=== PATIENT | male | born 1965 | race Caucasian/White ===

== ENCOUNTER 2024-02-20 08:13 | Inpatient (IN) | payer OTHER, SELFPAY ==
[2024-02-20] VITALS (16 sets, daily range): BP systolic 94–152; BP diastolic 61–91; BMI 32.0; BMI 32.1
[2024-02-20 06:37] LABS: Hematocrit 41.6 % (39.0-52.0); Hemoglobin 14.7 g/dL (13.0-18.0); Mean Corp Hgb Conc. 35.3 g/dL (33.0-37.0); Mean Corpuscular Hgb 29.9 pg (27.0-31.0); Mean Corpuscular Volume 84.7 fL (80.0-94.0); Platelet Count 188 10^3/uL (130-400); Red Blood Cell Count 4.91 10^6/uL (4.70-6.10); Red Cell Dist. Width 12.8 % (11.5-14.5); White Blood Cell Count 8.8 10^3/uL (4.8-10.8)
--- NOTE | 2024-02-20 06:42 | ED.GENMED ---
History of Present Illness
General
Chief Complaint: Chest Pain
Source: patient and significant other
Exam Limitations: none
Time Seen by Provider: 02/20/24 06:18
Nursing documentation reviewed up to this point in time: agreed with
History of Present Illness
History of Present Illness:
Patient without any significant past medical history, presents to ED secondary to sudden onset of chest pain shortly after having sexual intercourse with his girlfriend, an approximately 1 hour prior to arrival. Chest pain described as dull, achy,
with radiation down both arms, associated with mild nausea sensation. Denies shortness of breath. Denies dizziness. Denies any alleviating or exacerbating factors. Denies previous history of chest pain. There is family history of heart disease,
i.e. father with DE. Denies recent illness. Denies recent travel or surgery. Denies back pain. Denies leg pain or swelling. Patient does not take any prescribed medications.
Past History
Past History
ED Past Medical History: None
ED Past Surgical History: Orthopedic
Social History
Tobacco: Non-smoker
Alcohol: None
Drug: None
Review of Systems
Review of Systems
Allergies reviewed?: Yes
All Other Systems: ROS reviewed and negative except as documented in HPI and ROS
Constitutional: Reports no symptoms
EENT: Reports no symptoms
Respiratory: Reports no symptoms
Cardiac: Reports chest pain
ABD/GI: Reports nausea
Musculoskeletal: Reports no symptoms
Skin: Reports no symptoms
Neurological: Reports no symptoms
Phy Exam
Physical Exam
Physical Exam:
Physical Exam
General: mild distress, not acutely ill. afebrile
Head: nc/at. eomi
Neck: supple. no meningeal signs.
Heart: s1/s2 regular rate and rhythm, no murmur. equal radial pulses.
Lungs: no acute respiratory distress. clear bilaterally
Abdomen: normal bowel sounds. not tender.
Neuro: alert and oriented. no focal neurological deficits
Skin: no rash
Psychiatric: well kept. interactive and cooperative
Extremities: no edema. no calf tenderness.
Scores
Heart Score for Chest Pain Patients
STEMI patient?: Yes
History: Highly Suspicious
ECG: Significant ST-Depression
Age: >45 - <65 years
Risk Factors: 1 or 2 Risk Factors
Troponin: </= Normal Limit
Heart Score for Chest Pain Patients: 6
Heart Score Risk: 20.3% MACE over next 6 weeks
Course
Orders/Labs/Results
Orders:
Orders
02/20/24 06:09
EKG [Electrocardiogram (*1)] Urgent
Reason for Study: Chest Pain
02/20/24 06:10
EKG- Treatment ONCE
02/20/24 06:18
Ondansetron Injectable [Zofran] 4 mg .ROUTE .STK-MED ONE
CR Chest Portable - 1 View Urgent
Comment:
Reason For Exam: chest pain
Reason Study Needs to be Portable: Patient Unstable
02/20/24 06:22
Complete Blood Count/No Diff Urgent
Comprehensive Metabolic Panel Urgent
Magnesium Urgent
Troponin I Urgent
02/20/24 06:24
Verapamil Injectable [Isoptin/Verapamil Injection] 5 mg .ROUTE .STK-MED ONE
02/20/24 06:25
Fentanyl Citrate/Pf [Sublimaze] 100 mcg .ROUTE .STK-MED ONE
Heparin 10,000 units .ROUTE .STK-MED ONE
Heparin 1000 Units/500 ml [Heparin] 1,000 units in 500 ml .ROUTE .STK-MED
Heparin Sodium,Porcine/Ns/Pf [Heparin 2000 Units/1000 ml] 2,000 unit in 1,000 ml .ROUTE .STK-MED
Lidocaine HCl/Pf [Xylocaine-Mpf 1% Vial] 50 mg .ROUTE .STK-MED ONE
Midazolam HCl [Versed] 2 mg .ROUTE .STK-MED ONE
Nitroglycerin [Tridil] 1,500 mcg .ROUTE .STK-MED ONE
02/20/24 06:35
NORepinephrine 4 MG/250 ML [Levophed] 4 mg in 250 ml .ROUTE .STK-MED
02/20/24 06:43
Aspirin Chewable [Low Strength Aspirin] 324 mg .ROUTE .STK-MED ONE
Nitroglycerin Sublingual [Nitrostat (Sublingual)] 0.4 mg .ROUTE .STK-MED ONE
Ticagrelor [Brilinta] 180 mg .ROUTE .STK-MED ONE
02/20/24 06:44
Heparin 5,000 units .ROUTE .STK-MED ONE
02/20/24 06:52
Heparin 1000 Units/500 ml [Heparin] 1,000 units in 500 ml .ROUTE .STK-MED
02/20/24 08:04
Admit Patient As Directed
Co-Sign Provider:
Level of Care: Inpatient admission
Assign to:: IVU
Physician / Group: jennie/Andrea
Diagnosis: STEMI
Reason for Hospitalization: STEMI
Expected length of stay greater than two midnights?: Yes
ELOS- Estimated Length of Stay in days: 3
I certify the patient meets the requirements for IP care: Yes
Electrocardiogram (*1) Urgent
Reason for Study: Other
Other Reason for Exam: s/p intervention
Comment: cbc
Code Status As Directed
Resuscitation Status: Full Code
CARDIAC REHAB CONSULT Routine
Co-Sign Provider:
Type of Cardiac Rehab Referral: Outpatient
Diagnosis: STEMI
Date of Diagnosis/Surgery: 02/20/24
Referring Provider: Other Provider
Other Referring Provider: Dr. Mendez
Acetaminophen [Tylenol] 650 mg PO Q4HPRN PRN
Activity As Directed
Activity Level: Out of Bed- Chair
Comment: bed/chair rest for 2 hours then out of bed ad jeff
Airport Duty Manager Procedure As Directed
Cardiac Cath Procedure: percutaneous coronary intervention
Intake/ Output As Directed
Frequency: Per unit guidelines
Notify MD As Directed
Notify physician if: immediately for chest pain or bleeding from access site(s)
Radial Artery Hemostasis Method As Directed
Instructions:: 3 mL out at 2 hour posts placement of band
3 mL out at 2 1/2 hours post placement of band
3 mL out at 3 hours post placement of band
Off at 3 1/2 hours post placement of band
If any oozing or hemotoma occurs:: re-inflate band and call provider
Site Checks As Directed
Check access site for bleeding/hematoma: Yes
Comment: on arrival, Q15min x4, Q30min x2, Q1 hr x2, Q2 hr x2, Q4 hr or per
protocol
Vascular Checks As Directed
Location: distal to access site - pulse check
Frequency: Other
Comment: on arrival, Q15min x4, Q30min x2, Q1 hr x2, Q2 hr x2, Q4 hr or per protocol
Vital Signs As Directed
Frequency: Other
Additional Instructions:: on arrival, Q15min x4, Q30min x2, Q1 hr x2, Q2 hr x2, then Q4 hr or per unit
protocol
02/20/24 08:06
PRN Pain Medication Management As Directed
May give lesser potent ordered pain med per pt: Yes
preference::
Protocol:: Medication orders for pain may be administered in a
manner that supports deferring to patient preference
when the pt is:
- Requesting an ordered lesser potent pain medication.
Least to most potent pain medications are defined
as: acetaminophen < NSAID < tramadol < opioids
(morphine, oxycodone, hydromorphone).
- Requesting a lesser dose of the same medication IF
ORDERED.
- Requesting a less intrusive route of administration
if both routes are prescribed by the provider (PO <
IV).
DX Deep Vein Thrombosis Video Routine
02/20/24 08:09
Case Management Consult ONCE
Case Management Consult: Discharge Planning
Comment: cost brilinta
02/20/24 08:15
0.9% Sodium Chloride 1000 ml [Nss] 1,000 ml IV PER PROTOCOL
Infusion rate in mL/kg/hr:: 1.5
Infusion rate in mL/hr:: 161
Duration of infusion (hours):: 5
02/20/24 Lunch
Cholesterol Lowering
At Your Request: Full Participation
Cholesterol Lowering: Sodium, 2 Gram
02/20/24 12:28
Troponin I Q8H
02/20/24 18:00
Atorvastatin [Lipitor] 80 mg PO QPM
Enoxaparin Sodium [Lovenox] 40 mg SC QPM
02/20/24 20:00
Troponin I Q8H
Ticagrelor [Brilinta] 90 mg PO BID
02/21/24 04:00
Troponin I Q8H
02/21/24 06:00
Echo 2D MMode Color/Doppler IN AM
Reason for Study: STEMI
Comment: cbc
Electrocardiogram (*1) IN AM
Reason for Study: Other
Other Reason for Exam: s/p intervention
Comment: cbc
Basic Metabolic Panel IN AM
Cardiovascular Evaluation IN AM
Complete Blood Count/No Diff IN AM
Glycohemoglobin (HgbA1c) Routine
Lipoprotein a (Lp a) [S] IN AM
02/21/24 08:00
Aspirin Chewable [Low Strength Aspirin] 81 mg PO DAILY
Losartan [Cozaar] 25 mg PO DAILY
02/22/24 06:00
Basic Metabolic Panel IN AM
Complete Blood Count/No Diff IN AM
02/23/24 06:00
Basic Metabolic Panel IN AM
Complete Blood Count/No Diff IN AM
Abnormal Lab Results
02/20/24 02/20/24 02/20/24
06:22 07:02 07:09
MPV 11.0 H fL
(7.4-10.4)
BUN 28 H mg/dl
(9-20)
Glucose 135 H mg/dl
(70-99)
POC ACT Low Range 165 H Seconds 265 H Seconds
(116-155) (116-155)
02/20/24
07:25
MPV
BUN
Glucose
POC ACT Low Range 313 H Seconds
(116-155)
02/20/24 06:22
02/20/24 06:22
Vital Signs
Initial and Last Documented VS:
Initial Vital Signs
BP
143/86
02/20/24 06:17
Last Documented Vital Signs
Temp Pulse Resp BP Pulse Ox
98.3 F 56 18 140/79 98
02/20/24 11:13 02/20/24 13:15 02/20/24 11:13 02/20/24 11:00 02/20/24 11:13
MDM/Problems Addressed
MDM/Problems Addressed:
STEMI alert activated, immediately upon reviewing of initial EKG. Patient given medications, per STEMI protocol, i.e. aspirin 2023 chewable, heparin protocol. Discussed with on-call Airport Duty Manager attending, Dr. Mendez, and decision made to also
administer Brilinta 180 mg at this time.
Patient provided with nitroglycerin sublingual 0.4 mg, with mild improvement of chest pain. Unfortunately, patient noted to become bradycardic and hypotensive. Shortly afterwards, patient's girlfriend shared that patient did in fact 1 tablet of
Viagra 7 hours ago. As such, patient given half amp of atropine and started on Levophed infusion, for blood pressure and heart rate support, with improvement.
Patient evaluated bedside by Dr. Mendez. Will proceed to Airport Duty Manager at this time.
Critical care statement: A total of 30 minutes of critical care time was provided for this patient. This includes management of unstable vital signs, evaluation of the patient at bedside, reviewing the patient's pertinent medical records, discussion
with consultants, review of old EKGs and review of pertinent medical records. This time with separate from time utilized to perform the aforementioned documented procedures
*EKG
Interpreted by ED Provider?: Yes
EKG Intrepretation Date: 02/20/24
Heart Rate: 51
Rate: bradycardiac
Rhythm: sinus
[place]: normal axis
Interval: normal interval
Ischemia: ST elevation
*Critical Care Note
Total Time (30-74mins, 75-104mins- exclusive of procedures): 30 min
ED Attending Note
-
Portions of this chart may have been created with voice recognition software.� Occasional wrong word or��sound alike� substitutions may have occurred due to the inherent limitations of voice recognition software.
Discharge Plan
Departure
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
Date of Disposition: 02/20/24
Time of Disposition: 06:43
Admit to: curb and gutter laborer
Presentation/result/management discussed w/ accepting MD/DO:
Discharge Problem:
ST elevation (STEMI) myocardial infarction
Interventions
Interventions:
*Risk Screen - Suicide Last Done: 02/20/24 08:17
*Nursing Disposition Last Done: 02/20/24 06:45
ED- Cardiac Assessment Last Done: 02/20/24 06:31
Discharge Date and Time
Discharge Date/Time: 02/20/24 07:26
[2024-02-20 06:56] LABS: ALT (SGPT) 26 U/L (0-50); AST (SGOT) 26 U/L (17-59); Albumin 4.2 g/dl (3.5-5.0); Alkaline Phosphatase 58 U/L (38-126); Blood Urea Nitrogen 28 mg/dl (9-20); Calcium 9.6 mg/dl (8.4-10.2); Carbon Dioxide 28 mmol/L (22-30); Chloride 103 mmol/L (98-107); Estimated Creatinine Clearance 91 ml/min; Glucose 135 mg/dl (70-99); Magnesium 2.1 mg/dl (1.6-2.3); Potassium 4.2 mmol/L (3.5-5.1); Sodium 140 mmol/L (135-145); Total Bilirubin 0.4 mg/dl (0.2-1.3); Total Protein 6.4 g/dl (6.3-8.2); eGFR > 60.00
[2024-02-20 07:00] LABS: Troponin I < 0.012 ng/ml
[2024-02-20 07:08] LABS: ACT-LR - POC 165 Seconds (116-155)
[2024-02-20 07:17] LABS: ACT-LR - POC 265 Seconds (116-155)
[2024-02-20 07:32] LABS: ACT-LR - POC 313 Seconds (116-155)
--- NOTE | 2024-02-20 07:40 | HPS.HSE ---
Family Physician
-
Family Physician: Camacho Banerjee MD (not seen in over 5 years)
Chief Complaint
-
Chest pain/STEMI
History of Present Illness
58 yo WM h/o HTN, HLD has not seen PCP in over 5 yrs and not on any medications who developed acute SSCP with associated nausea while having intercourse with his girlfriend this am. 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 EKG with inferior ST elevations.
He was given ASA, Heparin, Brilinta and Nitro. He had not disclosed the Viagra which resulted in hypotension and bradycardia after nitro, he received atropine and Levophed and was brought urgently to the collaborative teacher.
Medical History
Past Medical History
Past Medical History: Reports HTN, Hypercholesterolemia and Other (prostatitis 2020)
Past Surgical History: Reports Orthopedic (Back surgery 96) and Other (Skin cancer excision)
Social History
Tobacco: Non-smoker
Alcohol: None
Living: With Family
Family History
Family History: Early CAD (father [place] @54 RCA) and Cancer
Allergies / Home Medications
Allergies reflects when Allergies were last updated in [employer].
Home Medications with original date entered in [employer]
Allergy/Medication List:
Allergies
Allergy/AdvReac Type Severity Reaction Status Date / Time
Sulfa (Sulfonamide Allergy Unknown Verified 02/20/24 06:32
Antibiotics)
�Medication �Instructions �Recorded �Confirmed �Type
sildenafil 50 mg tablet 50 mg PO DAILY PRN erectile 02/20/24 02/20/24 History
dysfunction
Review of Systems
-
Cardiac: Reports Other (back pain 06/17)
Physical Exam
Vital Signs
Vital Signs
Pulse Resp BP Pulse Ox
76 13 126/79 95
02/20/24 06:45 02/20/24 06:45 02/20/24 06:40 02/20/24 06:45
Physical Exam
General: Pain (deferred as drapped and undergoing emergent procedure)
Laboratory Results
-
02/20/24 06:22
02/20/24 06:22
Laboratory Results
Total Bilirubin 0.4 mg/dl (0.2-1.3) 02/20/24 06:22
AST 26 U/L (17-59) 02/20/24 06:22
ALT 26 U/L (0-50) 02/20/24 06:22
Alkaline Phosphatase 58 U/L (38-126) 02/20/24 06:22
Troponin I < 0.012 ng/ml 02/20/24 06:22
Data Reviewed
-
Medical Tests (Nuc Med, Echo, EKG etc): Report Reviewed by me
Impression/Plan
-
PCP: Micha Ac MD
IMPRESSION/PLAN:
# Acute inferior STEMI - This diagnosis is a threat to life, post PCI RPL x 2 overlapping HENRY 02/19
serial troponin to peak, Echo in am
DAPT ASA/Brilinta (CM to eval cost)
Hold BB for now with bradycardia, new start to low dose ARB, trend BP
Check CVE and lipoprotein A, initiate high intensity statin
Cardiac rehab c/s
f/u CBC 2-4 weeks at d/c
continue to monitor on tele closely
#HTN - initiate ARB trend BP's
#HLD - has not seen PCP in over 5 yrs, will check CVE and initiate high intensity statin therapy
#Family hx premature CAD
#Prostatitis
#Skin cancer
--- NOTE | 2024-02-20 08:15 | PTCARENOTE ---
pt received from greenhouse laborer- pt drowsy, arouses easily to voice, AAOx3. SR on telemtry heart rate in 70s. pulses palpable. right radial TR band intact. pt on room air. sat 98%. lung sounds clear. active bowel sounds. given urinal, has not voided. pt
updated on plan of care. girlfriend brought to bedside.
--- NOTE | 2024-02-20 09:04 | ITS.CL.PN ---
Non Acoustic Operator - Procedure Note
Procedure
Procedure Note:
CARDIAC CATHETERIZATION REPORT
Date of Procedure: 02/20/2024
Referring: Dr. Roosevelt Fragoso
Indication: inferior STEMI
PROCEDURE:
1. Left heart catheterization
2. Coronary angiography
3. PCI with HENRY for acute WA to right posterolateral branch
4. IVUS of RCA
ACCESS:
6 [place] right radial artery
CATHETERS:
1. 6 [place] JL4 diagnostic
2. 6 [place] JR4 guide
HEMODYNAMIC DATA
LV 150/12 (EDP 30) mmHg
AO 142/80 (mean 104) mmHg
CORONARY ANGIOGRAPHY
Dominance: right
LM: large vessel with mild disease. The LM gives off an early moderate caliber branch that functions as a septal cascade, and then bifurcates into a moderate caliber LAD and large LCx. There is mild disease in the LM. The septal cascade has mild
disease.
LAD: moderate caliber vessel giving rise to one small diagonal branch. There is a long segment of moderate disease in the LAD beyond the diagonal. The distal LAD tapers to a diminutive vessel at the apex.
LCx: large vessel giving rise to a very large high-rising OM1 and moderate caliber OM2. There is a focal 40% stenosis in the mid-LCx between OM1 and OM2 and otherwise mild disease.
RCA: large dominant vessel giving rise to a large RPDA which supplies the apex and a large RPL branch that is 100% occluded.
INTERVENTIONS - IVUS-guided PCI to the right posterolateral branch with overlapping 2.75x22 and 3.0x12 mm HENRY
The right coronary artery was engaged with a JR4 guide catheter and a Runthrough wire placed in the distal RPL branch. Initial lesion preparation was performed with a 2.0x12 mm balloon with synagogue of flow. The patient became briefly bradycardic
in sinus rhythm with reperfusion, but blood pressure remained stable. A 2.75x22 mm [place] HENRY was selected and deployed at nominal pressure with good angiographic result. IVUS was then performed demonstrating a 2.75 mm distal reference vessel
diameter with a 3.25 mm proximal reference diameter and undersizing of the proximal stent edge. The proximal stent edge had been placed in a zone with minimal disease as confirmed by IVUS, but there was a segment of heavy plaque burden just distal
to the RPL/PRDA bifurcation. This was covered with a second 3.0x8 mm [place] HENRY. The stent balloon was used to postdilate the overlap. The entire stent other than the distal edge was then post-dilated with a 3.25x12 mm NC balloon with
excellent final angiographic result. IVUS was repeated and showed appropriate stent sizing, expansion, and apposition without edge dissection. The wire and guide were then removed and a TR band placed. The patient was taken to cath recovery and the
family updated.
Closure Device: TR band
Radiation dose (mGy): 1434
DAP (cm2.Gy): 80.67
Fluoroscopy time (minutes): 14.9
CONCLUSIONS:
1. Elevated LV filling pressure and no aortic stenosis
2. Coronary artery disease in a right dominant system with 100% thrombotic occlusion of the RPL
3. Successful IVUS-guided PCI of the RPL with placement of overlapping 2.75x22 and 3.0x8 mm [place] HENRY post-dilated with a 3.25 mm NC balloon. Excellent result without complication.
RECOMMENDATIONS:
1. Expectant management after cardiac catheterization via right approach.
2. DAPT with ASA/Ticagrelor
3. High intensity statin for goal LDL<55, check Lp(a)
4. AICHA inhibitor
5. Beta heather tomorrow (had heart block and bradycardia with RV involvement)
6. TTE
7. Cardiac rehab
Mohsen Mendez MD, PhD
[2024-02-20] MEDS: NSS 1000 IV (09:27)
[2024-02-20] MEDS: TYLENOL 650 MG PO (10:47)
--- NOTE | 2024-02-20 11:36 | CM ---
Pricing on Brilinta through the patient's [facility] is $60 for a 30 day or $12 for a 90 day supply. Patient qualifies for the $5 copay card. I placed it in the patient's red discharge folder and reviewed it with the patient. It is in stock at the
patient's [facility]
--- NOTE | 2024-02-20 11:39 | CM ---
Chart reviewed. 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 Plan is for the patient to return home. CM to follow
[2024-02-20] MEDS: LIPITOR 80 MG PO (17:15)
[2024-02-20] MEDS: LOVENOX 40 MG SC (17:16)
[2024-02-20] MEDS: BRILINTA 90 MG PO (20:28)
[2024-02-21] VITALS (7 sets, daily range): BP systolic 137–147; BP diastolic 72–80; BMI 32.1
--- NOTE | 2024-02-21 00:17 | PTCARENOTE ---
Rec'd pt at change of shift. Pt on TELE monitor in NSR with VSS and AAO*3. Pt denied any pain or discomfort. Pt post R radial heart cath with radial band off and dressing CDI. Pt aware of activity restriction and agreed to report any bleeding
immediately. Pt resting in bed with call saunders in reach.
[2024-02-21 04:15] LABS: Blood Urea Nitrogen 18 mg/dl (9-20); Carbon Dioxide 24 mmol/L (22-30); Chloride 104 mmol/L (98-107); Estimated Creatinine Clearance 112 ml/min; Glucose 98 mg/dl (70-99); HDL Cholesterol 28 mg/dl; LDL Cholesterol, Calculated 117 mg/dl; Sodium 138 mmol/L (135-145); Total Cholesterol 185 mg/dl (50-199); Triglyceride 202 mg/dl (10-149); Very Low Density Lipoprotein 40 mg/dl (0-30); eGFR > 60.00
[2024-02-21 04:19] LABS: Hematocrit 37.7 % (39.0-52.0); Hemoglobin 13.1 g/dL (13.0-18.0); Mean Corp Hgb Conc. 34.7 g/dL (33.0-37.0); Mean Corpuscular Volume 86.5 fL (80.0-94.0); Mean Platelet Volume 10.8 fL (7.4-10.4); Platelet Count 206 10^3/uL (130-400); Red Blood Cell Count 4.36 10^6/uL (4.70-6.10)
--- NOTE | 2024-02-21 05:16 | DOWNTIME ---
There was a [employer] Client Tooth Grinder Downtime on 02/21/2024 from 0100 to 02/21/2024 at 0355. Downtime documentation of patient's care, including medication administrations, has been reconciled in the electronic record per guidelines. Refer to the
patient's paper chart under the miscellaneous tab to see printed paper medication records and downtime forms.
--- NOTE | 2024-02-21 08:38 | W.PN.CD ---
Today's Communication / Plan
-
uptitrate Valsartan as able
HR controlled
Impression / Plan
-
A: 58 yo male presented with chest pain and inferior STEMI now s/p HENRY x2 to RPL 02/19.
STEMI s/p HENRY x2 to RPL
- cont aspirin and ticag
- HRs are acceptable
- started valsartan
- cardiac rehab
- CBC in 2 weeks
HTN
- switched losartan to valsartan
HLD
- cont atorva 80
Subjective: No new complaints feeling well
Physical Exam
Vital Signs/Labs
Vital Signs
Temp Pulse Resp BP Pulse Ox
98.6 F 56 20 137/75 97
02/21/24 06:52 02/21/24 05:00 02/21/24 06:52 02/21/24 03:23 02/21/24 06:52
02/20/24 02/21/24 02/22/24
06:59 06:59 06:59
Actual Weight 235 lb 14.314 oz 236 lb 5.369 oz
02/21/24 03:20
02/21/24 03:20
Magnesium 2.1 mg/dl (1.6-2.3) 02/20/24 06:22
Triglycerides 202 mg/dl (10-149) H 02/21/24 03:20
LDL Cholesterol, Calc 117 mg/dl 02/21/24 03:20
VLDL Cholesterol, Calc 40 mg/dl (0-30) H 02/21/24 03:20
HDL Cholesterol 28 mg/dl 02/21/24 03:20
LAB Results
02/20/24 02/20/24 02/20/24
06:22 12:28 20:05
Troponin I < 0.012 2.310 H* D 2.910 H* D
02/21/24
03:20
Troponin I 1.970 H* D
Physical Exam
Constitutional: No acute distress and Comfortable
EENT: Anicteric
Cardiovascular: Rhythm & rate is regular
Respiratory: Respiratory effort normal and Lungs clear to auscul.
GI: Soft
Neuro/Psych: AO x 3
Other: Cath Site (c/d/i good pulse )
Data Reviewed
-
Date of Service: February 21, 2024
EKG: Tracing Personally Visualized and interpreted (sr)
Echo: Report Reviewed by me
Labs: Labs Reviewed by me
--- NOTE | 2024-02-21 08:54 | PTCARENOTE ---
Received patient this morning resting in bed, right wrist dressing dry and intact, offers no complaints. Sent for echo as ordered and now back in his room ordering breakfast.
[2024-02-21] MEDS: BRILINTA 90 MG PO ×2 (09:33→19:48)
[2024-02-21] MEDS: LOW STRENGTH ASPIRIN 81 MG PO (09:33)
[2024-02-21] MEDS: DIOVAN 80 MG PO (09:34)
[2024-02-21 09:43] LABS: Glycohemoglobin (HgbA1c) 5.7 % (4.0-5.6)
--- NOTE | 2024-02-21 11:33 | CM ---
Chart reviewed. Patient is independent of ADLS, lives with his daughter who is only there PT in a [address], 15 [address], 0 DME. Plan is for the patient to return home. CM to follow
[2024-02-21] MEDS: LOVENOX 40 MG SC (17:10)
[2024-02-21] MEDS: LIPITOR 80 MG PO (17:10)
--- NOTE | 2024-02-21 22:54 | PTCARENOTE ---
Pt. received at change of shift. Pt. seen and assessed in room. Pt. AOx3 with no complaints at this time. VS WNL. Daughter at bedside. Pt. ambulating in room with no issues. Plan of care explained to pt by RN. Pt. verbalizes understanding. Call saunders
within reach. Continuing to monitor at this time.
[2024-02-22 03:52] VITALS: BMI 32.0
[2024-02-22 04:00] VITALS: BP 137/79
[2024-02-22 04:15] LABS: Hemoglobin 14.2 g/dL (13.0-18.0); Mean Corp Hgb Conc. 35.5 g/dL (33.0-37.0); Mean Corpuscular Hgb 30.1 pg (27.0-31.0); Mean Corpuscular Volume 84.7 fL (80.0-94.0); Mean Platelet Volume 10.4 fL (7.4-10.4); Platelet Count 201 10^3/uL (130-400); Red Blood Cell Count 4.72 10^6/uL (4.70-6.10); Red Cell Dist. Width 12.9 % (11.5-14.5); White Blood Cell Count 8.9 10^3/uL (4.8-10.8)
[2024-02-22 04:38] LABS: Blood Urea Nitrogen 14 mg/dl (9-20); Calcium 8.8 mg/dl (8.4-10.2); Carbon Dioxide 23 mmol/L (22-30); Chloride 105 mmol/L (98-107); Estimated Creatinine Clearance 112 ml/min; Glucose 103 mg/dl (70-99); Potassium 4.1 mmol/L (3.5-5.1); Sodium 139 mmol/L (135-145); eGFR > 60.00
--- NOTE | 2024-02-22 06:59 | W.PN.CD ---
Today's Communication / Plan
-
Increase valsartan get d/c today
Impression / Plan
-
A: 58 yo male presented with chest pain and inferior STEMI now s/p HENRY x2 to RPL 02/19.
STEMI s/p HENRY x2 to RPL
- cont aspirin and ticag
- HRs are acceptable
- increase valsartan to 180 mg daily
- cardiac rehab
- CBC in 2 weeks
HTN
- increase valsartan
HLD
- cont atorva 80
Subjective: Continues to feel well without new CV complaints, excited to leave
Physical Exam
Vital Signs/Labs
Vital Signs
Temp Pulse Resp BP Pulse Ox
98.1 F 55 20 137/79 98
02/22/24 04:10 02/22/24 05:00 02/21/24 19:40 02/22/24 04:00 02/21/24 19:40
02/20/24 02/21/24 02/22/24
06:59 06:59 06:59
Actual Weight 235 lb 14.314 oz 236 lb 5.369 oz 235 lb 14.314 oz
02/22/24 04:06
02/22/24 04:06
Magnesium 2.1 mg/dl (1.6-2.3) 02/20/24 06:22
Triglycerides 202 mg/dl (10-149) H 02/21/24 03:20
LDL Cholesterol, Calc 117 mg/dl 02/21/24 03:20
VLDL Cholesterol, Calc 40 mg/dl (0-30) H 02/21/24 03:20
HDL Cholesterol 28 mg/dl 02/21/24 03:20
LAB Results
02/20/24 02/20/24 02/20/24
06:22 12:28 20:05
Troponin I < 0.012 2.310 H* D 2.910 H* D
02/21/24
03:20
Troponin I 1.970 H* D
Physical Exam
Constitutional: No acute distress and Comfortable
EENT: Anicteric
Cardiovascular: Rhythm & rate is regular and Pedal edema is absent
Respiratory: Respiratory effort normal and Lungs clear to auscul.
GI: Soft
Neuro/Psych: AO x 3
Data Reviewed
-
Date of Service: February 22, 2024
Medical Decision Making: Reviewed Test Results
EKG: Tracing Personally Visualized and interpreted (sr)
Echo: Report Reviewed by me
Labs: Labs Reviewed by me
[2024-02-22 07:02] VITALS: BP 120/64
[2024-02-22] MEDS: BRILINTA 90 MG PO (09:43)
[2024-02-22] MEDS: LOW STRENGTH ASPIRIN 81 MG PO (09:43)
[2024-02-22] MEDS: DIOVAN 160 MG PO (09:44)
[2024-02-22] MEDS: FLUSH (NSS) 2 FLUSH IV (09:45)
--- NOTE | 2024-02-22 10:21 | PTCARENOTE ---
Received patient this morning resting in bed, S.O. and daughter at the bedside. Patient denies any chest pain or sob. Anxious to go home.
[2024-02-22 10:53] VITALS: BP 137/81
--- NOTE | 2024-02-22 12:57 | PTCARENOTE ---
Patient cleared by cardiology for discharge. Reviewed discharge instructions with the patient and his daughter and they state their understanding. Aware of new prescriptions, complying with meds and follow up appointments scheduled. Patient
discharged home with his daughter.
--- NOTE | 2024-02-22 15:50 | W.DS.TRANS ---
DC Summary - School Director
-
Discharge Instructions:
Discharge Diagnosis/Procedures Angioplasty with stent to Right posterior
lateral artery x 2
Diet Low Cholesterol
Driving Restrictions No driving for 24 hours
Other Services Cardiac Rehab
Instructions:
Stand-Alone Forms: DC Instructions- Cath/EP Lab
Changes to Home Medications: Yes
Discharge Medications:
DC Medications w/original date entered in [facility]
sildenafil 50 mg tablet 50 mg PO DAILY PRN erectile dysfunction 02/20/24
aspirin 81 mg chewable tablet 81 mg PO DAILY #1 tab 02/22/24
atorvastatin 80 mg tablet 80 mg PO QPM #90 tabs 02/22/24
nitroglycerin 0.4 mg sublingual tablet 0.4 mg sublingual [id number] PRN chest pain #25 tabs 02/22/24
ticagrelor 90 mg tablet (Brilinta) 90 mg PO BID #60 tabs 02/22/24
valsartan 160 mg tablet 160 mg PO DAILY #30 tabs 02/22/24
Home Medication Changes
all meds new except sildenafil
Pending Results: Yes
Additional Pending Results:
lipoprotein a result
[2024-02-23 13:04] LABS: Lipoprotein a (Lp a) 11 mg/dL (<=29)
== END 2024-02-22 12:59 | disposition home or self-care (01) | DRG 322 ==
LOC: IVU 08:13
PROVIDERS: Nurse Practitioner Adult Health; ADMITTING PHYSICIAN Student in an Organized Health Care Education/Training Program; EMERGENCY PHYSICIAN Emergency Medicine
PROC: 027035Z Dilation of Coronary Artery, One Artery with Two Drug-eluting Intraluminal Devices, Percutaneous Approach (ICD-10-PCS; 2024-02-20)
PROC: B240ZZ3 Ultrasonography of Single Coronary Artery, Intravascular (ICD-10-PCS; 2024-02-20)
PROC: 4A023N7 Measurement of Cardiac Sampling and Pressure, Left Heart, Percutaneous Approach (ICD-10-PCS; 2024-02-20)
PROC: B2111ZZ Fluoroscopy of Multiple Coronary Arteries using Low Osmolar Contrast (ICD-10-PCS; 2024-02-20)
DX: I21.19 ST elevation (STEMI) myocardial infarction involving other coronary artery of inferior wall (principal); I10 Essential (primary) hypertension; I25.10 Atherosclerotic heart disease of native coronary artery without angina pectoris; I95.9 Hypotension, unspecified; E78.00 Pure hypercholesterolemia, unspecified; R00.1 Bradycardia, unspecified; Z79.02 Long term (current) use of antithrombotics/antiplatelets; Z79.82 Long term (current) use of aspirin; Z79.899 Other long term (current) drug therapy; Z85.828 Personal history of other malignant neoplasm of skin; Z82.49 Family history of ischemic heart disease and other diseases of the circulatory system
CPT/HCPCS: 71045; 80048; 80053; 80061; 83036; 83695; 83735; 84484; 85027; 85347; 92978; 93005; 93306; 93458; 99291; C1725; C1753; C1874; C1894; C9606; Q9967

== ENCOUNTER 2024-11-20 12:08 | Inpatient (IN) | payer OTHER, SELFPAY ==
[2024-11-18 12:07] VITALS: BP 158/97
[2024-11-18 12:35] LABS: Hematocrit 43.2 % (39.0-52.0); Hemoglobin 14.6 g/dL (13.0-18.0); Mean Corp Hgb Conc. 33.8 g/dL (33.0-37.0); Mean Corpuscular Volume 90.0 fL (80.0-94.0); Nucleated Red Blood Cells % 0 % (-); Platelet Count 220 10^3/uL (130-400); Red Cell Dist. Width 12.7 % (11.5-14.5)
[2024-11-18 12:43] LABS: INR 0.91; PT 12.6 Sec (11.4-14.6)
[2024-11-18 12:57] LABS: ALT (SGPT) 43 U/L (0-50); AST (SGOT) 29 U/L (17-59); Albumin 4.4 g/dl (3.5-5.0); Alkaline Phosphatase 74 U/L (38-126); Blood Urea Nitrogen 19 mg/dl (9-20); Calcium 9.0 mg/dl (8.4-10.2); Carbon Dioxide 27 mmol/L (22-30); Chloride 104 mmol/L (98-107); Glucose 132 mg/dl (70-99); Potassium 4.4 mmol/L (3.5-5.1); Sodium 137 mmol/L (135-145); Total Protein 6.7 g/dl (6.3-8.2); eGFR > 60.00
[2024-11-18 13:04] LABS: Troponin I < 0.012 ng/ml
--- NOTE | 2024-11-18 15:08 | ED.GENMED ---
History of Present Illness
General
Chief Complaint: Chest Pain
Time Seen by Provider: 11/18/24 14:57
History of Present Illness
History of Present Illness:
59-year-old male presents to the emergency department for evaluation of exertional chest pain x 1 week. He is status post STEMI in February 2020 for HENRY x 2 to the right posterolateral branch. He notes that pain seemed to begin shortly after losing
access to his Brilinta, states his insurance covers Brilinta and his pharmacy will not provide it to him, he has not taken this for at least 1 week. Also notes that he was without his valsartan for approximately 3 weeks but restarted this recently.
He has no chest pain at rest. Does feel somewhat comparable to his prior [place]. No associated fevers, shortness of breath, leg swelling. Denies any symptoms at this current time.
Past History
Past History
ED Past Medical History: None
ED Past Surgical History: Orthopedic
Social History
Tobacco: Non-smoker
Alcohol: None
Drug: None
Review of Systems
Review of Systems
Allergies reviewed?: Yes
All Other Systems: ROS reviewed and negative except as documented in HPI and ROS
Phy Exam
Physical Exam
Physical Exam:
GEN: Well appearing, NAD, WDWN
HEENT: Oral mucosa moist, no scleral icterus
Cardiac: Regular rate and rhythm, no murmur
Lung: No respiratory distress, no tachypnea, lungs CTAB
MSK: No gross deformity or injuries
Skin: Good color, no pallor or jaundice, no rashes
Neuro: AO x3, moves all extremities freely
Psych: Calm, cooperative
Scores
Heart Score for Chest Pain Patients
STEMI patient?: No
History: Moderately Suspicious
ECG: Normal
Age: >45 - <65 years
Risk Factors: >/= 3 Risk Factors or History of CAD
Troponin: </= Normal Limit
Heart Score for Chest Pain Patients: 4
Heart Score Risk: 20.3% MACE over next 6 weeks
Course
Orders/Labs/Results
Orders:
Orders
11/18/24 Breakfast
Cholesterol Lowering
At Your Request: Full Participation
Cholesterol Lowering: Sodium, 2 Gram
11/18/24 12:09
Electrocardiogram (*1) Urgent
Reason for Study: Chest Pain
Cardiac Monitoring- Treatment ONCE
EKG- Treatment ONCE
IV Insert/Care/Rem.- Treatment PRN
O2 Therapy [RESP] Urgent
Titrate/Wean O2 to maintain O2 sat greater than (%): 90
Special Instructions: Maintain sats >/=90%
Pulse Ox/spot Check [RESP] Urgent
Quantity: 1
Special Instructions: ON ROOM AIR
11/18/24 12:26
Complete Blood Count/With Diff Urgent
Comprehensive Metabolic Panel Urgent
Prothrombin Time Urgent
Troponin I Urgent
11/18/24 15:04
CR Chest - 2 Views Urgent
Comment:
Reason For Exam: chest pain
11/18/24 15:10
Case Management Consult ONCE
Case Management Consult: Other
Comment: Medication Assistance
11/18/24 17:06
Admit/Transfer Patient As Directed
Co-Sign Provider:
Level of Care: Observation services
Assign to:: Telemetry
Physician / Group: [facility]
Diagnosis: Chest pain
Reason for Telemetry: Chest Pain syndromes
Date to Stop Telemetry: 11/20/24
Time to Stop Telemetry: 11:00
11/18/24 17:07
PRN Pain Medication Management As Directed
May give lesser potent ordered pain med per pt: Yes
preference::
Protocol:: Medication orders for pain may be administered in a
manner that supports deferring to patient preference
when the pt is:
- Requesting an ordered lesser potent pain medication.
Least to most potent pain medications are defined
as: acetaminophen < NSAID < tramadol < opioids
(morphine, oxycodone, hydromorphone).
- Requesting a lesser dose of the same medication IF
ORDERED.
- Requesting a less intrusive route of administration
if both routes are prescribed by the provider (PO <
IV).
11/18/24 17:08
Code Status As Directed
Resuscitation Status: Full Code
11/18/24 17:16
CARDIOLOGY CONSULT Routine
Consulting Provider: Charles Kwon
Was physician already notified: Yes
11/18/24 17:28
Troponin I Q6H
11/18/24 18:00
EKG [Electrocardiogram (*1)] Routine
Reason for Study: CAD
11/18/24 18:27
Bisacodyl [Dulcolax] 10 mg RECTAL [id number] PRN
Docusate W/Senna [Senokot-S] 1 tablet PO BIDPRN PRN
Polyethylene Glycol Powder [Miralax] 17 grams PO DAILYPRN PRN
11/18/24 18:27
Activity As Directed
Activity Level: As Tolerated
Intake/ Output As Directed
Frequency: Per unit guidelines
Pneumatic Compression Sleeves As Directed
Type: Knee high
Vital Signs As Directed
Frequency: Per unit guidelines
Weight As Directed
Frequency: Daily
Pulse Ox/spot Check [RESP] Routine
Quantity: 1
DX Deep Vein Thrombosis Video Routine
11/18/24 20:00
Ticagrelor [Brilinta] 90 mg PO BID
11/18/24 22:00
Atorvastatin [Lipitor] 80 mg PO HS
11/19/24 00:00
Troponin I Q6H
11/19/24 06:00
Exercise Nuclear [Nuclear/stress Exercise (*7)] IN AM
Reason for Study: shoulder discomfort, hx CAD, poss anginal equivalent
Comment: Dr. Kwon
NPO
Allow oral meds: Yes
Allow clear liquids: No
Basic Metabolic Panel IN AM
Complete Blood Count/With Diff IN AM
Hgba1c [Glycohemoglobin (HgbA1c)] IN AM
Lipid Profile [Cardiovascular Evaluation] IN AM
NM Cardiac Stress IN AM
Comment: Dr. Kwon
Reason For Exam: possible anginal equivalent
11/19/24 08:00
Aspirin Low Dose EC [Aspir Low (Enteric Coated)] 81 mg PO DAILY
Valsartan [Diovan] 160 mg PO DAILY
11/20/24 06:00
Basic Metabolic Panel IN AM
Complete Blood Count/With Diff IN AM
11/20/24 11:00
DC Protocol for Telemetry ONCE
11/21/24 06:00
Basic Metabolic Panel IN AM
Complete Blood Count/With Diff IN AM
11/22/24 06:00
Basic Metabolic Panel IN AM
Complete Blood Count/With Diff IN AM
11/23/24 06:00
Basic Metabolic Panel IN AM
Complete Blood Count/With Diff IN AM
11/24/24 06:00
Basic Metabolic Panel IN AM
Complete Blood Count/With Diff IN AM
11/25/24 06:00
Basic Metabolic Panel IN AM
Complete Blood Count/With Diff IN AM
Abnormal Lab Results
11/18/24
12:26
Glucose 132 H mg/dl
(70-99)
11/18/24 12:26
11/18/24 12:26
Vital Signs
Initial and Last Documented VS:
Initial Vital Signs
Temp Pulse Resp BP Pulse Ox
97.9 F 71 20 158/97 97
11/18/24 12:07 11/18/24 12:07 11/18/24 12:07 11/18/24 12:07 11/18/24 12:07
Last Documented Vital Signs
Temp Pulse Resp BP Pulse Ox
98.3 F 66 20 139/68 96
11/18/24 19:47 11/18/24 19:47 11/18/24 19:47 11/18/24 19:47 11/18/24 19:47
MDM/Problems Addressed
MDM/Problems Addressed:
Although the patient's presentation does not sound overtly concerning for angina, his noncompliance with antiplatelet therapy coupled with chest pain that is described as somewhat similar to past angina is concerning, discussed the case with
cardiology who saw the patient at bedside and recommends admission for further ischemic workup as an outpatient
Comment
Comment:
EKG independently interpreted by me shows a normal sinus rhythm with first-degree AV block, rate of [address] changes concerning for ischemia
*Pulse Oximetry
SaO2: 97
Oxygen Mode of Delivery: Room air
Patient hypoxic: no
*Critical Care Note
Total Time (30-74mins, 75-104mins- exclusive of procedures): Not Applicable
Update Note
Update Note:
Case discussed with cardiology at the bedside, plan for admission to hospitalist service for nuclear stress test in the morning. Case management also evaluated the patient and will assist with cardiology help the patient obtain appropriate
antiplatelet therapy
ED Attending Note
-
Portions of this chart may have been created with voice recognition software.� Occasional wrong word or��sound alike� substitutions may have occurred due to the inherent limitations of voice recognition software.
Discharge Plan
Departure
Patient Disposition: Admit
Date of Disposition: 11/18/24
Time of Disposition: 16:13
Admit to: Telemetry
Admit to doctor: Clarke
Presentation/result/management discussed w/ accepting MD/DO: Hospitalist
Discharge Problem:
Chest pain
Interventions
Interventions:
*Risk Screen - Suicide Last Done: 11/18/24 12:07
*General Assessment Last Done: 11/18/24 12:07
*Neglect/Abuse Screening Last Done: 11/18/24 17:27
*ED- Fall Risk Assessment Last Done: 11/18/24 17:26
*ED COVID-19 Vaccine History Last Done: 11/18/24 17:26
*Nursing Disposition Last Done: 11/18/24 18:32
ED- Cardiac Assessment Last Done: 11/18/24 18:03
Discharge Date and Time
Discharge Date/Time: 11/18/24 18:32
--- NOTE | 2024-11-18 15:29 | CON.CAR ---
Addendum entered and electronically signed by Charles Kwon MD 11/18/24 17:03:
I saw and examined the patient.
The [employer] SUPERVISOR's note was reviewed and I agree with the note.
59-year-old male with a history of coronary disease, ST IL and RPL stenting 02/2024, hypercholesterolemia who presents with bilateral shoulder discomfort. Patient's had intermittent symptoms over the past week. Reports bilateral shoulder
discomfort sometimes with exertion but sometimes is positional if he lays on his left side symptoms occur and seem to get better but he also described episodes where he was doing exertion such as yard work, walking stairs or intercourse where he
would get shoulder discomfort. Unclear if some of the symptoms are precipitated by arm activity like pulling hoses. Although the shoulder discomfort reminds him of symptoms he had when he presented with his IL he does not have the chest discomfort
that he had when he presented with his IL. No shortness of breath. He has been compliant with aspirin but he ran out of Brilinta and also ran out of valsartan. ECG without acute ischemic changes first troponin negative.
.
Chest discomfort. Exact cause of symptoms unclear. Patient has known coronary artery disease with previous IL and RPL stenting 02/2024 with some symptoms reminding him of previous presentation however he does not have the chest discomfort that he
had with his initial presentation and at times he describes a positional component which is not consistent with angina. Based on the above I suggested the following
- Admit for observation
- Serial troponins
- If troponins remain negative then plan for ETT MIBI in a.m.
- Continue aspirin and resume Brilinta
Original Note:
Consultation
Consultation Request
Date/Time Consultation Requested: 11/18/247
Date/Time Consultation Performed: 11/18/248
Requesting Provider: Troy MACKEY
Performing Provider: Genet VÁZQUEZ for Dr. Kwon
Reason for Consultation: shoulder dicomfort, possible anginal equivalent
Medical History
-
Chief Complaint: shoulder discomgoty
History of Present Illness:
58 y/o male with hypertension, CAD with hx STEMI 02/2024 with RPL stenting, and dyslipidemia who is here for evaluation of b/l shoulder discomfort. 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 It feels reminiscent in some ways of his [place]. However, there is not chest discomfort like there was for his [place]. It lasts less than a minute typically and started about 1 week ago. Of note, he stopped Brilinta about
1 week ago due to a pharmacy insurance issue and stopped ARB 3 weeks ago because he ran out. He has picked that back up though. He has been taking ASA and statin. He is in no distress at the time of my assessment. He denies any SOB.
Past Medical History
Past Medical History: CAD, HTN and Hypercholesterolemia
Social History
Tobacco: Non-Smoker
Family History
Family History: Early CAD
Allergies / Home Medications
Allergy/AdvReac Type Severity Reaction Status Date / Time
Sulfa (Sulfonamide Allergy Unknown Verified 02/20/24 06:32
Antibiotics)
�Medication �Instructions �Recorded �Confirmed �Type
sildenafil 50 mg tablet 50 mg PO DAILY PRN erectile 02/20/24 02/20/24 History
dysfunction
aspirin 81 mg chewable tablet 81 mg PO DAILY #1 tab 02/22/24 Rx
atorvastatin 80 mg tablet 80 mg PO QPM #90 tabs 02/22/24 Rx
nitroglycerin 0.4 mg sublingual 0.4 mg sublingual [id number] PRN 02/22/24 Rx
tablet chest pain #25 tabs
ticagrelor 90 mg tablet (Brilinta) 90 mg PO BID #60 tabs 02/22/24 Rx
valsartan 160 mg tablet 160 mg PO DAILY #30 tabs 02/22/24 Rx
Review of Systems
-
History Source: Patient
All other systems: Negative unless noted
Musculoskeletal: Other (b/l shoulder pain)
Physical Exam
Vital Signs
Temp Pulse Resp BP Pulse Ox
97.9 F 71 20 158/97 97
11/18/24 12:07 11/18/24 12:07 11/18/24 12:07 11/18/24 12:07 11/18/24 15:10
Lab Results
11/18/24 12:26
11/18/24 12:26
Troponin I < 0.012 ng/ml 11/18/24 12:26
Physical Exam
General: Well Developed, Well Nourished and No Apparent Distress
HEENT: Normocephalic and Anicteric
Respiratory: Clear and Non Labored Respirations
Cardiac: Regular Rhythm
Musculoskeletal: No Edema
Skin: Warm and Dry
Neuro: AO x 3
Psych: Calm
Impression / Plan
-
b/l shoulder discomfort:
-as described. Some of it sounds musculoskeletal, but also some features sound like could be anginal equivalent.
-monitor trops, EKG. If trops remains normal, plan for stress test tomorrow (nuclear exercise).
-other w/u per IM
CAD with hx STEMI/stenting 02/2024:
-continue ASA, resume Brilinta. I spoke with YANCI coelho in ER. He needs prior auth for continued Brilinta as OP or switch to plavix. For now, add back Brilinta here. I will send our office a message to start prior auth. He will need to go home with
plan for second antiplatelet though.
-continue statin
-w/u as above
HTN:
-resume valsartan and monitor
HLD:
-check lipids, continue statin
Data Reviewed
-
EKG: Tracing Personally Visualized and interpreted (SR with 1st degree AVB 66 BPM)
Radiology: Report Reviewed by me (CXR: No acute cardiopulmonary abnormality.)
Medical Tests (Nuc Med, Echo etc): Report Reviewed by me (cath report 02/20/24: Coronary artery disease in a right dominant system with 100% thrombotic occlusion of the RPL 3. Successful IVUS-guided PCI of the RPL with placement of overlapping
2.75x22 and 3.0x8 mm Sergio Lavonia HENRY post-dilated with a 3.25 mm NC balloon. ) and Other (echo 02/21/24: Normal left ventricular size and function. LV ejection fraction is 50-55% by Ac's method of discs. Mild concentric left ventricular
hypertrophy. Mildly dilated right ventricle with preserved systolic function. Trace aortic regurgitation.)
Labs: Labs Reviewed by me
--- NOTE | 2024-11-18 15:45 | CM ---
Received CM consult for medication assistance, pt was not in room, I met with his significant other Delmi who told me pt's insurance will not cover generic Brilinta and it would cost $400 or he could switch to Plavix. I confirmed pharmacy as
[facility] in [place], I called ([phone])and spoke to the pharmacist. She told me his insurance will not cover the generic and the brand name Brilinta now needs a prior auth or pt could be switched to Plavix.
I met with pt and Delmi along with Cardiology Nurse Practitioner, shared above information with them. SUPERVISORY CLERK will follow up.
ED provider Amando also updated.
[2024-11-18 17:00] VITALS: BP 139/85
--- NOTE | 2024-11-18 17:11 | HPS.HSE ---
Family Physician
-
Family Physician: Camacho Banerjee
Chief Complaint
-
Chest pain
History of Present Illness
59-year-old male with past medical history of coronary artery disease, STEMI status post stenting, hyperlipidemia, hypertension came to the hospital with chest heaviness and shoulder discomfort. Per patient his symptoms get worse with exertion.
Per patient he has been compliant with aspirin however he ran out of Brilinta and valsartan. Denies any sick contacts. Denies any fever/chills. Denies any abdominal pain, nausea, vomiting, diarrhea, constipation.
Medical History
Past Medical History
Past Medical History: Reports CAD, HTN and Hypercholesterolemia
Past Surgical History: Reports Cardiac
Social History
Tobacco: Non-smoker
Alcohol: None
Family History
Family History: Not pertinent
Allergies / Home Medications
Allergies reflects when Allergies were last updated in [facility].
Home Medications with original date entered in [facility]
Allergy/Medication List:
Allergies
Allergy/AdvReac Type Severity Reaction Status Date / Time
Sulfa (Sulfonamide Allergy Unknown Verified 02/20/24 06:32
Antibiotics)
Home Medications
valsartan 160 mg tablet 160 mg PO DAILY #30 tabs 02/22/24
aspirin 81 mg tablet,delayed release 81 mg PO DAILY 11/18/24
atorvastatin 80 mg tablet 80 mg PO HS 11/18/24
sildenafil 100 mg tablet 50 mg PO DAILYPRN PRN ED 11/18/24
ticagrelor 90 mg tablet (Brilinta) 90 mg PO .SEE BELOW 11/18/24
Review of Systems
-
History Source: Patient
A 12 point ROS was completed and negative except as noted: Yes
Cardiac: Reports Chest Pain
Physical Exam
Vital Signs
Vital Signs
Temp Pulse Resp BP Pulse Ox
97.9 F 71 20 158/97 97
11/18/24 12:07 11/18/24 12:07 11/18/24 12:07 11/18/24 12:07 11/18/24 15:10
Physical Exam
General: Well Nourished and No Apparent Distress
HEENT: NormoCephalic, Anicteric and Moist mucous membranes
Respiratory: Clear; No Wheezes
Cardiac: S1/S2 and Regular Rhythm
Breast: Deferred by me
GI: Soft, Non Tender, Non Distended and Normal Bowel Sounds
Rectal: Deferred by Provider
Genito-urinary: No Muro
Musculoskeletal: No Edema
Neuro: Awake, Alert, Oriented and AO x 3
Psych: Calm and Intact Judgment/Insight
Laboratory Results
-
11/18/24 12:26
11/18/24 12:26
Laboratory Results
PT 12.6 Sec (11.4-14.6) 11/18/24 12:26
INR 0.91 11/18/24 12:26
Total Bilirubin 0.9 mg/dl (0.2-1.3) 11/18/24 12:26
AST 29 U/L (17-59) 11/18/24 12:26
ALT 43 U/L (0-50) 11/18/24 12:26
Alkaline Phosphatase 74 U/L (38-126) 11/18/24 12:26
Troponin I < 0.012 ng/ml 11/18/24 12:26
Data Reviewed
-
Lab Data: Labs Reviewed by me and Discussed with Patient
Impression/Plan
-
Exertional chest discomfort, shoulder discomfort, rule out ACS
History of CAD status post stent
Seen by cardiology in the ED, plan for nuclear stress tomorrow
Continue to trend troponin
Continue aspirin, resume Brilinta. Cardiology to decide if needs Brilinta or Plavix on discharge given his insurance
EKG
Chest x-ray without any acute cardiopulmonary abnormality
If need medication for blood pressure then consider a beta-heather.
CAD with history of STEMI/stenting
Continue aspirin, Brilinta
Continue statin
Hypertension
Continue valsartan
DVT prophylaxis
SCDs
Full code
[2024-11-18 17:26] VITALS: BMI 32.6
[2024-11-18 17:31] VITALS: BP 139/85
[2024-11-18 17:57] LABS: Troponin I < 0.012 ng/ml
[2024-11-18 18:31] VITALS: BP 157/86
[2024-11-18 18:41] VITALS: BMI 31.8
[2024-11-18 19:47] VITALS: BP 139/68
[2024-11-18] MEDS: BRILINTA 90 MG PO (20:14)
[2024-11-18] MEDS: LIPITOR 80 MG PO (20:14)
[2024-11-18 23:58] VITALS: BP 128/58
[2024-11-19] VITALS (10 sets, daily range): BP systolic 118–151; BP diastolic 52–84
[2024-11-19 00:59] LABS: Troponin I < 0.012 ng/ml
[2024-11-19 08:00] LABS: Hematocrit 43.0 % (39.0-52.0); Hemoglobin 14.7 g/dL (13.0-18.0); Mean Corp Hgb Conc. 34.2 g/dL (33.0-37.0); Mean Corpuscular Volume 89.6 fL (80.0-94.0); Nucleated Red Blood Cells % 0 % (-); Platelet Count 211 10^3/uL (130-400); Red Cell Dist. Width 12.7 % (11.5-14.5)
[2024-11-19] MEDS: ASPIR LOW (ENTERIC COATED) 81 MG PO (08:00)
[2024-11-19] MEDS: BRILINTA 90 MG PO ×2 (08:00→20:47)
[2024-11-19] MEDS: DIOVAN 160 MG PO (08:01)
[2024-11-19 08:58] LABS: Blood Urea Nitrogen 18 mg/dl (9-20); Calcium 9.1 mg/dl (8.4-10.2); Carbon Dioxide 26 mmol/L (22-30); Chloride 108 mmol/L (98-107); Estimated Creatinine Clearance 124 ml/min; Glucose 99 mg/dl (70-99); HDL Cholesterol 33 mg/dl; LDL Cholesterol, Calculated 73 mg/dl; Potassium 4.4 mmol/L (3.5-5.1); Sodium 138 mmol/L (135-145); Very Low Density Lipoprotein 24 mg/dl (0-30); eGFR > 60.00
--- NOTE | 2024-11-19 09:25 | W.PN.CD ---
Today's Communication / Plan
-
Troponins negative
1 brief episode of shoulder symptoms since admission but currently pain-free
Await ETT MIBI
Impression / Plan
-
b/l shoulder discomfort:
- Patient reported some shoulder discomfort with positional change but also some with exertion. Some component sound musculoskeletal but on the other hand he has known coronary disease and he had some shoulder discomfort with his previous
presentation with angina. However previous presentation also was associated with chest discomfort which he is not currently having. Despite shoulder discomfort troponins have been negative. 1 brief episode of symptoms since he has been
hospitalized currently chest pain-free and shoulder pain-free
- Plan for ETT MIBI
CAD with hx STEMI/stenting 02/2024:
-continue ASA, resume Brilinta. I spoke with YANCI coelho in ER. He needs prior auth for continued Brilinta as OP or switch to plavix. For now, add back Brilinta here. I will send our office a message to start prior auth. He will need to go home with
plan for second antiplatelet. If he cannot afford Brilinta we will transition to Plavix
-continue statin
-w/u as above
HTN: Monitor
HLD:
-check lipids, continue statin
Physical Exam
Vital Signs/Labs
Vital Signs
Temp Pulse Resp BP Pulse Ox
98.3 F 65 14 147/83 97
11/19/24 08:14 11/19/24 08:14 11/19/24 08:14 11/19/24 08:14 11/19/24 08:14
11/18/24 11/19/24 11/20/24
06:59 06:59 06:59
Actual Weight 106.396 kg
11/19/24 07:25
11/19/24 07:25
PT 12.6 Sec (11.4-14.6) 11/18/24 12:26
INR 0.91 11/18/24 12:26
Triglycerides 123 mg/dl (10-149) 11/19/24 07:25
LDL Cholesterol, Calc 73 mg/dl 11/19/24 07:25
VLDL Cholesterol, Calc 24 mg/dl (0-30) 11/19/24 07:25
HDL Cholesterol 33 mg/dl 11/19/24 07:25
LAB Results
11/18/24 11/18/24 11/19/24
12: 17:28 00:25
Troponin I < 0.012 < 0.012 < 0.012
Physical Exam
Constitutional: No acute distress
Cardiovascular: Rhythm & rate is regular
Respiratory: Wheeze Absent and Rhonchi Absent
GI: Soft and Non tender
Neuro/Psych: Alert and Oriented
Data Reviewed
-
Date of Service: November 19, 2024
Medical Decision Making: Reviewed Test Results
EKG: Tracing Personally Visualized and interpreted and Report Reviewed by me
X-Ray/CT/US/MRI/NUC/PET: Report Reviewed by me
Labs: Labs Reviewed by me
[2024-11-19 09:53] LABS: Glycohemoglobin (HgbA1c) 5.6 % (4.0-5.6)
--- NOTE | 2024-11-19 12:12 | W.PN.HOSP.TC ---
Today's Communication/Plan
-
Monitor vital signs and see plan
Discussed with cardiology, cardiac catheterization either later today versus tomorrow
Assessment / Plan
Assessment / Plan
General: Well Nourished and No Apparent Distress
HEENT: NormoCephalic, Anicteric and Moist mucous membranes
Respiratory: Clear; No Wheezes
Cardiac: S1/S2 and Regular Rhythm
GI: Soft, Non Tender, Non Distended and Normal Bowel Sounds
Genito-urinary: No Muro
Musculoskeletal: No Edema
Neuro: Awake, Alert, Oriented and AO x 3
Psych: Calm and Intact Judgment/Insight
Exertional chest discomfort, shoulder discomfort, rule out ACS
History of CAD status post stent
Cardiology following; wean could not complete stress test today due to shoulder pain. Discussed with cardiology. Plan for cardiac catheterization either later today versus tomorrow
trop neg
Continue aspirin, resume Brilinta. Cardiology to decide if needs Brilinta or Plavix on discharge given his insurance
Chest x-ray without any acute cardiopulmonary abnormality
If need medication for blood pressure then consider a beta-heather.
CAD with history of STEMI/stenting
Continue aspirin, Brilinta
Continue statin
Hypertension
Continue valsartan
DVT prophylaxis
SCDs
Full code
Anticipated Discharge: Within 24 hours
Subjective/Interval History
-
Date of Service: November 19, 2024
Does have intermittent left shoulder pain
Objective Data
-
Labs:
Laboratory Results
11/19/24
07:25
WBC 8.3
Hgb 14.7
Hct 43.0
Plt Count 211
Sodium 138
Potassium 4.4
Chloride 108 H
Carbon Dioxide 26
BUN 18
Creatinine 0.8
Glucose 99
Calcium 9.1
Vital Signs:
Vital Signs
Temp Pulse Resp BP Pulse Ox
98.1 F 71 16 135/75 96
11/19/24 12:06 11/19/24 12:06 11/19/24 12:06 11/19/24 12:06 11/19/24 12:06
I&O
11/18/24 11/19/24 11/20/24
06:59 06:59 06:59
Intake Total 480 / 480
Balance 480 / 480
--- NOTE | 2024-11-19 15:33 | CM ---
Patient seen bedside w/ family. Initial assessment completed. Patient is a 59-year-old male with past medical history of coronary artery disease, STEMI status post stenting, hyperlipidemia, hypertension came to the hospital with chest heaviness and
shoulder discomfort.
Patient resides alone in a 2STH, 16-20 steps to enter the home. Full flight to the second floor where bed and bath is located. Patient is independent w/ ambulation, no device required. Independent w/ ADLs. No DME reported. No SNF/HC hx reported.
Address, points of contact and insurance verified
PCP: Camacho Banerjee
Pharmacy: [facility]
Patient is admitted obs. OOBS form verbally reviewed, copy provided, copy on chart
Plan: Home, no needs anticipated at this time
--- NOTE | 2024-11-19 16:50 | PTCARENOTE ---
Pt rec'd in label cutter recovery, pre cath workup completed.
--- NOTE | 2024-11-19 17:01 | PTCARENOTE ---
Dr. Oglesby at bedside, pt will have cath tomorrow instead of today. Pt taken back to room on tele.
[2024-11-19] MEDS: LIPITOR 80 MG PO (20:48)
[2024-11-20] VITALS (13 sets, daily range): BP systolic 113–149; BP diastolic 67–95; BMI 31.6
[2024-11-20 06:23] LABS: Hematocrit 44.4 % (39.0-52.0); Hemoglobin 15.3 g/dL (13.0-18.0); Mean Corp Hgb Conc. 34.5 g/dL (33.0-37.0); Mean Corpuscular Volume 90.2 fL (80.0-94.0); Nucleated Red Blood Cells % 0 % (-); Platelet Count 214 10^3/uL (130-400); Red Cell Dist. Width 12.8 % (11.5-14.5)
[2024-11-20 06:48] LABS: Blood Urea Nitrogen 18 mg/dl (9-20); Calcium 9.1 mg/dl (8.4-10.2); Carbon Dioxide 23 mmol/L (22-30); Chloride 108 mmol/L (98-107); Estimated Creatinine Clearance 110 ml/min; Glucose 108 mg/dl (70-99); Potassium 4.1 mmol/L (3.5-5.1); Sodium 139 mmol/L (135-145); eGFR > 60.00
[2024-11-20] MEDS: DIOVAN 160 MG PO (07:51)
[2024-11-20] MEDS: ASPIR LOW (ENTERIC COATED) 81 MG PO (07:51)
[2024-11-20] MEDS: BRILINTA 90 MG PO ×2 (07:51→19:52)
[2024-11-20 09:44] LABS: ACT-LR - POC 276 Seconds (116-155)
[2024-11-20 09:52] LABS: ACT-LR - POC 351 Seconds (116-155)
[2024-11-20 10:12] LABS: ACT-LR - POC 290 Seconds (116-155)
--- NOTE | 2024-11-20 10:21 | ITS.CL.CATH ---
Story Reader - Catheterization
Cardiac Catheterization
Procedure Report:
LEFT HEART CATHETERIZATION AND CORONARY INTERVENTION
Date of Procedure: November 20, 2024
Referring: Charles Kwon M.D.
PROCEDURES:
1. Left heart catheterization, coronary angiogram.
2. Moderate sedation.
3. Successful percutaneous coronary artery intervention of a 90% hazy mid RCA stenosis with one 3.0 x 22 mm Medtronic Sergio drug-eluting stent, postdilated using IVUS guidance with a 3.75 x 15 mm NC balloon at 22 saniya with an excellent angiographic
and IVUS based result.
4. Intravascular ultrasound (IVUS)
INDICATION: Concern for unstable angina
ACCESS: Right radial artery, 6Fr. sheath, under US guidance.
HEMODYNAMICS : (mmHg)
AO (s/d) : 120/78
LVEDP : 15
No significant gradient across the aortic valve to suggest aortic stenosis.
CORONARY FINDINGS
Dominance: Right
Left Main Trunk (LMT): Large caliber vessel that gives off moderate caliber branch that functions as a septal cascade early, and then bifurcates into a moderate caliber LAD and large LCx. There is mild diffuse atherosclerotic plaque in the left
main in the septal cascade.
Left Anterior Descending Artery (LAD): Moderate caliber vessel that gives off 1 small caliber major diagonal branch as it courses along the anterior inter-ventricular groove towards the cardiac apex. There is a long segment of moderate disease in
the LAD beyond the diagonal branch. The distal LAD tapers to a diminutive vessel at the apex.
Left Circumflex Artery (LCx): Large caliber vessel that gives off a large caliber high rising OM1 and a moderate caliber OM 2 as it courses along the atrio-ventricular (AV) groove. There is a focal 40% stenosis in the mid left circumflex between
OM1 and OM 2. Otherwise there is mild diffuse atherosclerotic plaque.
Right Coronary Artery (RCA): Large caliber dominant vessel that gives rise to the posterior descending artery (RPDA) and postero-lateral ventricular (RPLV) branches distally. Previously placed RPL stent is widely patent. Mid RCA now has a hazy
90% stenosis thought to be the culprit of presenting ACS, with intervention as noted below.
CORONARY INTERVENTION: Decision was made to proceed with intervention percutaneously to the mid RCA stenosis. Additional heparin was given to maintain a therapeutic ACT throughout the case. The RCA was selectively engaged using a 6 [place] JR4
guide catheter. A 190 cm 0.014 run-through coronary wire was carefully navigated across the mid RCA stenosis into the distal vessel. The mid RCA stenosis was predilated using a 3.0 x 12 mm semi-compliant balloon at nominal pressure with full
expansion. The lesion was subsequently stented using a 3.0 x 22 mm Medtronic [place] drug-eluting stent. Based on IVUS guidance we postdilated the stent using a 3.75 x 15 mm NC balloon at 18 saniya distally and 22 saniya proximally with an excellent
angiographic and IVUS based result. Patient tolerated the procedure well with no acute complications. He will continue his daily baby aspirin and Brilinta.
SEDATION: 67 minutes of procedural sedation was utilized. IV Midazolam and IV Fentanyl were administered. An independent medical insurance coder was present to assist with and help manage the patient's level of consciousness and physiologic status.
RADIATION SUMMARY: Fluoro Time (min): 8.7, Dose (mGy): 778.49, DAP (Gy.cm2) : 58.5
Closure Device: There were no immediate intra-procedural complications. The sheath was pulled in the laborer dairy farm and a vascular-band applied to the right wrist for radial artery hemostasis using the patent hemostasis technique.
CONCLUSIONS
1. Successful percutaneous coronary artery intervention of a 90% hazy mid RCA stenosis with one 3.0 x 22 mm Medtronic Sergio drug-eluting stent, postdilated using IVUS guidance with a 3.75 x 15 mm NC balloon at 22 saniya with an excellent angiographic
and IVUS based result.
2. Previously placed RPLB stent is widely patent.
3. Stable coronary artery disease that is nonobstructive in the left coronary artery.
4. LVEDP of 15 mmHg
RECOMMENDATIONS
1. Wean radial band per protocol. Monitor right hand perfusion and for bleeding from the radial site following removal of the vascular-band following trans-radial access.
2. Continue aggressive medical therapy and risk factor modification for secondary CAD prevention.
3. Continue ASA 81 mg daily for life.
4. Continue Brilinta for at least 12 months of uninterrupted dual anti-platelet therapy given drug-eluting stent (HENRY) implantation to mitigate the risk of stent thrombosis. This is not to be stopped for any reason without the guidance of a
vegetable farmer.
5. Hydrate with normal saline to mitigate the risk of contrast-induced acute kidney injury.
6. Referral for outpatient cardiac rehab.
Copy to: Charles Kwon M.D.
Romi Oglesby MD, [facility], [facility]
[2024-11-20] MEDS: NSS 1000 IV (11:00)
--- NOTE | 2024-11-20 11:23 | PTCARENOTE ---
Pt received post cath awake, alert and oriented. Denies any chest pain or sob. Right rad site WNL. No change since am assessment. Family at the bedside.
--- NOTE | 2024-11-20 12:58 | W.PN.HOSP.TC ---
Today's Communication/Plan
-
monitor vitals
see plan
cw asa,brillinta
Assessment / Plan
Assessment / Plan
General: Well Nourished and No Apparent Distress
HEENT: NormoCephalic, Anicteric and Moist mucous membranes
Respiratory: Clear; No Wheezes
Cardiac: S1/S2 and Regular Rhythm
GI: Soft, Non Tender, Non Distended and Normal Bowel Sounds
Genito-urinary: No Muro
Musculoskeletal: No Edema
Neuro: Awake, Alert, Oriented and AO x 3
Psych: Calm and Intact Judgment/Insight
Exertional chest discomfort, shoulder discomfort, rule out ACS
History of CAD status post stent
Cardiology following; wean could not complete stress test today due to shoulder pain. Discussed with cardiology. s/p cardiac cath 11/20 with successful percutaneous coronary artery intervention of a 90% hazy mid RCA stenosis with one 3.0 x 22 mm
Medtronic Sergio drug-eluting stent
trop neg
Continue aspirin, Brilinta. Cardiology to decide if needs Brilinta or Plavix on discharge given his insurance
Chest x-ray without any acute cardiopulmonary abnormality
If need medication for blood pressure then consider a beta-heather.
CAD with history of STEMI/stenting
Continue aspirin, Brilinta
Continue statin
Hypertension
Continue valsartan
DVT prophylaxis
SCDs
Full code
Anticipated Discharge: Within 24 hours
Subjective/Interval History
-
Date of Service: November 20, 2024
denies nausea
Objective Data
-
Labs:
Laboratory Results
11/20/24
05:27
WBC 9.3
Hgb 15.3
Hct 44.4
Plt Count 214
Sodium 139
Potassium 4.1
Chloride 108 H
Carbon Dioxide 23
BUN 18
Creatinine 0.9
Glucose 108 H
Calcium 9.1
Vital Signs:
Vital Signs
Temp Pulse Resp BP Pulse Ox
98.6 F 65 18 113/67 100
11/20/24 11:14 11/20/24 08:03 11/20/24 11:14 11/20/24 08:03 11/20/24 11:14
I&O
11/19/24 11/20/24 11/21/24
06:59 06:59 06:59
Intake Total 480 / 480 700 / 700
Balance 480 / 480 700 / 700
--- NOTE | 2024-11-20 17:38 | W.PN.CD ---
Today's Communication / Plan
-
cath today
Impression / Plan
-
b/l shoulder discomfort:
- cath today
CAD with hx STEMI/stenting 02/2024:
-continue ASA, resume Brilinta. I spoke with YANCI coelho in ER. He needs prior auth for continued Brilinta as OP or switch to plavix. For now, add back Brilinta here. I will send our office a message to start prior auth. He will need to go home with
plan for second antiplatelet. If he cannot afford Brilinta we will transition to Plavix
-continue statin
-now s/p RCA HENRY
HTN: Monitor
HLD:
-check lipids, continue statin
Physical Exam
Vital Signs/Labs
Vital Signs
Temp Pulse Resp BP Pulse Ox
98.5 F 65 18 113/67 98
11/20/24 15:52 11/20/24 08:03 11/20/24 15:52 11/20/24 08:03 11/20/24 15:52
11/19/24 11/20/24 11/21/24
06:59 06:59 06:59
Actual Weight 234 lb 9 oz 232 lb 8 oz
11/20/24 05:27
11/20/24 05:27
PT 12.6 Sec (11.4-14.6) 11/18/24 12:26
INR 0.91 11/18/24 12:26
Triglycerides 123 mg/dl (10-149) 11/19/24 07:25
LDL Cholesterol, Calc 73 mg/dl 11/19/24 07:25
VLDL Cholesterol, Calc 24 mg/dl (0-30) 11/19/24 07:25
HDL Cholesterol 33 mg/dl 11/19/24 07:25
LAB Results
11/18/24 11/18/24 11/19/24
12:26 17:28 00:25
Troponin I < 0.012 < 0.012 < 0.012
Physical Exam
Constitutional: No acute distress
EENT: Anicteric
Cardiovascular: Rhythm & rate is regular
Respiratory: Respiratory effort normal
GI: Soft
Neuro/Psych: Alert and Oriented
Data Reviewed
-
Date of Service: November 20, 2024
Medical Decision Making: Reviewed Test Results
EKG: Tracing Personally Visualized and interpreted (sr)
Labs: Labs Reviewed by me
[2024-11-20] MEDS: LIPITOR 80 MG PO (22:36)
--- NOTE | 2024-11-21 01:50 | PTCARENOTE ---
Patient ambulating self in room w/out difficulty. Tele monitor shows Sinus tali-NSR. HR in the 50-60s at rest. Denies any pain or SOB. Right radial site intact, no hematoma present. Patient educated about activity restrictions and verbalized
understanding. Call saunders within reach.
[2024-11-21 04:22] VITALS: BP 135/82
[2024-11-21 04:34] VITALS: BMI 31.7
[2024-11-21 04:54] LABS: Hematocrit 43.7 % (39.0-52.0); Hemoglobin 14.8 g/dL (13.0-18.0); Mean Corp Hgb Conc. 33.9 g/dL (33.0-37.0); Mean Corpuscular Volume 89.4 fL (80.0-94.0); Nucleated Red Blood Cells % 0 % (-); Platelet Count 217 10^3/uL (130-400); Red Cell Dist. Width 12.9 % (11.5-14.5)
[2024-11-21 05:14] LABS: Blood Urea Nitrogen 16 mg/dl (9-20); Calcium 9.3 mg/dl (8.4-10.2); Carbon Dioxide 27 mmol/L (22-30); Chloride 108 mmol/L (98-107); Estimated Creatinine Clearance 123 ml/min; Glucose 108 mg/dl (70-99); Potassium 4.2 mmol/L (3.5-5.1); Sodium 137 mmol/L (135-145); eGFR > 60.00
[2024-11-21 07:24] VITALS: BP 110/54
[2024-11-21] MEDS: BRILINTA 90 MG PO (08:31)
[2024-11-21] MEDS: ASPIR LOW (ENTERIC COATED) 81 MG PO (08:31)
[2024-11-21] MEDS: DIOVAN 160 MG PO (08:31)
--- NOTE | 2024-11-21 08:44 | W.PN.CD ---
Today's Communication / Plan
-
Patient is post RCA stenting 11/20/2024
Doing well postprocedure cath site fine
Continue dual antiplatelet therapy. I discussed with him cost of Brilinta and he feels he can afford it and since he was on this medication before he would continue with this. He knows that he should not run out of medication and if there are
issues with cost in the future he needs to contact our office and we will transition to Plavix
Stable for discharge today
Impression / Plan
-
b/l shoulder discomfort:
- cath today
CAD(RCA stent 11/20/2024). , hx STEMI/stenting 02/2024: Patient presented with shoulder discomfort this admission and underwent cardiac catheterization with 90% hazy RCA. Patient underwent successful stenting of RCA on 11/20/2024
-Importance of dual antiplatelet therapy reviewed.
-Continue aspirin and Brilinta
HTN: Monitor
HLD:
-check lipids, continue statin
Physical Exam
Vital Signs/Labs
Vital Signs
Temp Pulse Resp BP Pulse Ox
98.7 F 66 18 110/54 97
11/21/24 07:22 11/21/24 08:31 11/21/24 07:22 11/21/24 08:31 11/21/24 07:22
11/20/24 11/21/24 11/22/24
06:59 06:59 06:59
Actual Weight 105.46 kg 105.8 kg
11/21/24 04:30
11/21/24 04:30
PT 12.6 Sec (11.4-14.6) 11/18/24 12:26
INR 0.91 11/18/24 12:26
Triglycerides 123 mg/dl (10-149) 11/19/24 07:25
LDL Cholesterol, Calc 73 mg/dl 11/19/24 07:25
VLDL Cholesterol, Calc 24 mg/dl (0-30) 11/19/24 07:25
HDL Cholesterol 33 mg/dl 11/19/24 07:25
LAB Results
11/18/24 11/18/24 11/19/24
12:26 17:28 00:25
Troponin I < 0.012 < 0.012 < 0.012
Physical Exam
Constitutional: No acute distress
Cardiovascular: Rhythm & rate is regular
Respiratory: Respiratory effort normal
GI: Soft
Other: Cath Site
stable
Data Reviewed
-
Date of Service: November 21, 2024
Medical Decision Making: Reviewed Test Results
--- NOTE | 2024-11-21 10:14 | W.PN.UPDATE ---
Update Note
Progress Note Update
I spoke with [facility] staff and they have patient's Brilinta/ticagrelor 90 mg PO BID in stock and ready to picked edge sewing machine operator (our office sent it already earlier this week) and I confirmed it will be $60, which is okay with patient per .
Cher's conversation with him.
--- NOTE | 2024-11-21 11:34 | W.PN.HOSP.TC ---
Today's Communication/Plan
-
Monitor vital signs see plan
Continue with aspirin, Brilinta
Discharge today
Time of discharge 38 minutes
Assessment / Plan
Assessment / Plan
General: Well Nourished and No Apparent Distress
HEENT: NormoCephalic, Anicteric and Moist mucous membranes
Respiratory: Clear; No Wheezes
Cardiac: S1/S2 and Regular Rhythm
GI: Soft, Non Tender, Non Distended and Normal Bowel Sounds
Genito-urinary: No Muro
Musculoskeletal: No Edema
Neuro: Awake, Alert, Oriented and AO x 3
Psych: Calm and Intact Judgment/Insight
Exertional chest discomfort, shoulder discomfort, rule out ACS
History of CAD status post stent
Cardiology following; s/p cardiac cath 11/20 with successful percutaneous coronary artery intervention of a 90% hazy mid RCA stenosis with one 3.0 x 22 mm Medtronic Sergio drug-eluting stent
trop neg
Continue aspirin, Brilinta. Discussed with cardiology, patient is okay with taking Brilinta.
Chest x-ray without any acute cardiopulmonary abnormality
If need medication for blood pressure then consider a beta-heather.
CAD with history of STEMI/stenting
Continue aspirin, Brilinta
Continue statin
Hypertension
Continue valsartan
DVT prophylaxis
SCDs
Full code
Anticipated Discharge: Today
Subjective/Interval History
-
Date of Service: November 21, 2024
Denies pain
Objective Data
-
Labs:
Laboratory Results
11/21/24
04:30
WBC 9.7
Hgb 14.8
Hct 43.7
Plt Count 217
Sodium 137
Potassium 4.2
Chloride 108 H
Carbon Dioxide 27
BUN 16
Creatinine 0.8
Glucose 108 H
Calcium 9.3
Vital Signs:
Vital Signs
Temp Pulse Resp BP Pulse Ox
98.7 F 66 18 110/54 98
11/21/24 07:22 11/21/24 08:31 11/21/24 07:22 11/21/24 08:31 11/21/24 07:24
I&O
11/20/24 11/21/24 11/22/24
06:59 06:59 06:59
Intake Total 700 / 700 480 / 480
Balance 700 / 700 480 / 480
--- NOTE | 2024-11-21 11:38 | W.DCSUMMARY ---
Discharge Summary
Discharge Data
Date of Admission: 11/20/24
Date of Discharge: 11/21/24
-
Pending Results: No
Hospital Course
59-year-old male with past medical history of CAD with stenting, hypertension came to the hospital with exertional chest discomfort and shoulder discomfort. Initially patient was scheduled for nuclear stress test however it had to be stopped since
patient started developing shoulder discomfort. Later on he got cardiac catheterization on 11/20 with successful PCI of RCA. He continued to be on aspirin and Brilinta. Cardiology made sure from pharmacy before discharge that patient will get his
Brilinta. Once his symptoms continue to improve, he was then discharged home with instructions to follow-up with all his physicians outpatient.
Discharge Plan
-
Patient Disposition: Home (Routine Discharge)
Discharge Diagnosis/Procedures: Chest pain secondary to coronary artery disease status post angioplasty with stent to RCA
Condition: Fair
Diet: Low Cholesterol
Activity: As tolerated
Driving Restrictions: No driving for 24 hours
Other Services: Cardiac Rehab
Stand Alone Forms: DC Instructions- Cath/EP Lab
Referrals:
[facility] [Outside]
Referral Note: Cardiac Rehab Orientation appointment � and� First Exercise appointment is on 12/31/24 at 1:00.
The Cardiac Rehab gym is located on the first floor of the [facility].
Ivana Hernandez CRNP [Specified Professional Personl, Cardiology] - 12/12/24 8:40 am
Camacho Banerjee MD [Family Provider, Internal Medicine] - in less than 1 week
Prescriptions:
Continued
valsartan 160 mg tablet
160 mg PO DAILY Qty: 30 5RF
aspirin 81 mg Tablet,Delayed Release (Dr/Ec)
81 mg PO DAILY
sildenafil 100 mg Tablet
50 mg PO DAILYPRN PRN (Reason: ED)
atorvastatin 80 mg tablet
80 mg PO HS
ticagrelor [Brilinta] 90 mg tablet
90 mg PO BID Qty: 1 0RF
Discharge Orders:
Discharge Patient (As Directed); Ordered 11/21/24
Ordered By: Maury Friedman
Care Plan Goals
Care Plan Goals:
Problem: Readiness for enhanced knowledge related to diagnosis and treatment plan
Goal: Understand your diagnosis and treatment plan needs, including medications if applicable.
Instructions: Know your diagnosis, underlying causes and treatment plan options, including medications if applicable. Consult with your health care team to learn about your diagnosis and treatment plan, including medications if applicable.
Discharge Date and Time
Discharge Date/Time: 11/21/24 13:22
Print Language: [place] ISLAND[place]
--- NOTE | 2024-11-21 11:59 | CM ---
Reviewed chart. Mr. Lawton was transferred to IVU. Met with Mr. Lawton to review discharge plans. He states he is feeling fell and maybe able to go homes soon. He states prior to admission he resides alone in a three story home with sixteen steps
to enter. He states he has a ten year old daughter that spends some time with him. He states he has a full flight of steps to get to bedroom/full bathroom He has a powder room on the first floor. He states prior to admission he was independent
with ambulation and adls. He states he does not have any DME in the home. He states he has a prescription plan and uses [facility]. Medical work-up in progress. The discharge plan is to return home when medically stable.
[2024-11-21 12:07] VITALS: BP 152/95
== END 2024-11-21 13:22 | disposition home or self-care (01) | DRG 322 ==
LOC: IVU 12:08
PROVIDERS: Internal Medicine Interventional Cardiology; Nurse Practitioner; Student in an Organized Health Care Education/Training Program; ADMITTING PHYSICIAN Internal Medicine; CONSULT PHYSICIAN Internal Medicine Cardiovascular Disease; EMERGENCY PHYSICIAN Emergency Medicine; FAMILY PHYSICIAN Internal Medicine
PROC: 4A02XM4 Measurement of Cardiac Total Activity, External Approach (ICD-10-PCS; 2024-11-19)
PROC: 4A023N7 Measurement of Cardiac Sampling and Pressure, Left Heart, Percutaneous Approach (ICD-10-PCS; 2024-11-20)
PROC: B2111ZZ Fluoroscopy of Multiple Coronary Arteries using Low Osmolar Contrast (ICD-10-PCS; 2024-11-20)
PROC: 027034Z Dilation of Coronary Artery, One Artery with Drug-eluting Intraluminal Device, Percutaneous Approach (ICD-10-PCS; 2024-11-20)
PROC: B240ZZ3 Ultrasonography of Single Coronary Artery, Intravascular (ICD-10-PCS; 2024-11-20)
DX: I25.10 Atherosclerotic heart disease of native coronary artery without angina pectoris (principal); E78.00 Pure hypercholesterolemia, unspecified; I10 Essential (primary) hypertension; I44.0 Atrioventricular block, first degree; I25.2 Old myocardial infarction; Z95.5 Presence of coronary angioplasty implant and graft; Z79.82 Long term (current) use of aspirin
CPT/HCPCS: 71046; 78452; 80048; 80053; 80061; 83036; 84484; 85025; 85347; 85610; 92978; 93005; 93017; 93458; 99152; 99153; 99285; A9500; C1725; C1753; C1769; C1874; C1894; C9600; Q9967